=== PATIENT | female | born 1980 | race Caucasian/White ===

== ENCOUNTER 2016-10-22 18:38 | Emergency (ER) | payer OTHER ==
[~2016-10-22] VITALS: Ht 157.5 cm; Wt 104.3 kg
[~2016-10-22 18:38] MED LIST: ALBU2.5V5 NEB; AMOX500C PO; BENZ200C39 PO; CYCL10TA2 PO; HYDR-971 PO; IBUP-1060 PO; NAPR250T2 PO; ONDA4TAB10 SL; PRED20TA PO; PRED50TA PO
--- NOTE | 2016-10-22 19:03 | PHYS DOC ---
Past Medical History Past Medical History: Anxiety, Asthma, Diabetes-Type II, Other Additional Past Medical Histor: MITRAL VALVE PROLAPSE Past Surgical History: Cholecystectomy, Tubal ligation, Other Additional Past Surgical Histo: R.FOOT, MITRAL VALVE REPAIR Alcohol Use: Rarely Drug Use: None Adult General Chief Complaint Chief Complaint: ABDOMINAL PAIN HPI HPI Patient is a 36 year old female who presents with epigastric pain. Patient reports she has been having a stabbing epigastric pain since last week. This has gotten worse the past 2 days. Clear inciting or aggravating factors. She does report after she eats it feels a little bit better for a few minutes, and then the pain comes back. She reports that this afternoon she had one episode of coffee-ground emesis. She is also been having diarrhea. Patient has been taking pantoprazole (only since 10/18/16) as well as tramadol with insufficient relief. She does not take any anticoagulants. She denies taking NSAIDs. No other acute complaints. Review of Systems Review of Systems Constitutional: Denies fever or chills Eyes: Denies change in visual acuity or eye pain HENT: Denies nasal congestion or sore throat Respiratory: Denies cough or shortness of breath Cardiovascular: Denies chest pain GI: Epigastric pain, nausea, emesis x1, diarrhea. Denies bloody stools : Denies dysuria or hematuria Musculoskeletal: Denies back pain or joint pain Integument: Denies rash or skin lesions Neurologic: Denies headache, focal weakness or sensory changes Current Medications Current Medications Current Medications Medications (Trade) Dose Ordered Sig/Diana Start Time Stop Time Status Last Admin Dose Admin Morphine Sulfate 4 mg 1X ONCE 10/22/16 21:00 10/22/16 21:01 DC Multi-Ingredient Mouthwash/Gargle (Gi Cocktail Single Dose) 15 ml 1X ONCE 10/22/16 21:00 10/22/16 21:01 DC Ondansetron HCl 4 mg 4 mg 1X ONCE 10/22/16 19:15 10/22/16 19:16 DC 10/22/16 19:33 4 MG Pantoprazole Sodium 80 mg/ Sodium Chloride 100 ml @ 10 mls/hr 1X ONCE 10/22/16 19:30 10/23/16 05:29 10/22/16 19:34 10 MLS/HR Sodium Chloride (Iv Sodium Chloride 0.9% 1000ml Bag) 1,000 ml @ 1,000 mls/hr 1X ONCE 10/22/16 19:15 10/22/16 20:14 DC 10/22/16 19:34 1,000 MLS/HR Allergies Allergies Allergies Coded Allergies Type Severity Reaction Last Updated Verified vancomycin Allergy Mild Hives 07/29/16 Yes azithromycin Allergy Unknown 08/17/16 Yes codeine Allergy Unknown 08/17/16 Yes Physical Exam Physical Exam Constitutional: Well developed, well nourished, no acute distress, non-toxic appearance HENT: Normocephalic, atraumatic, bilateral external ears normal Eyes: EOMI, conjunctiva normal, no discharge Neck: Normal range of motion, no stridor Cardiovascular: Heart rate normal, regular rhythm, no murmur Lungs & Thorax: Bilateral breath sounds clear to auscultation Abdomen: Bowel sounds normal, soft, non-distended, epigastric TTP without guarding or rebound Skin: Warm, dry, no erythema, no rash Extremities: No obvious deformity, no edema Neurologic: Alert and oriented X 3, no gross deficits noted Current Patient Data Vital Signs Vital Signs Date Time Temp Pulse Resp B/P Pulse Ox O2 Delivery O2 Flow Rate FiO2 10/22/16 18:42 97.6 87 20 122/68 97 Room Air 97.6 Lab Values Laboratory Tests Test 10/22/16 18:45 10/22/16 19:20 10/22/16 20:20 Urine Collection Type Unknown Urine Color Yellow Urine Clarity Clear Urine pH 6.0 Urine Specific [place] 1.025 Urine Protein Negativemg/dL (NEG-TRACE) Urine Glucose (UA) Negativemg/dL (NEG) Urine Ketones (Stick) Negativemg/dL (NEG) Urine Blood Large (NEG) Urine Nitrite Negative (NEG) Urine Bilirubin Negative (NEG) Urine Urobilinogen Dipstick 0.2mg/dL (0.2 mg/dL) Urine Leukocyte Esterase Trace (NEG) Urine RBC 0/HPF (0-2) Urine WBC 5-10/HPF (0-4) Urine Squamous Epithelial Cells Mod/LPF Urine Bacteria Moderate/HPF (0-FEW) Urine Mucus Mod/LPF Urine Test Negative (NEG) White Blood Count 6.9x10^3/uL (4.0-11.0) Red Blood Count 5.17x10^6/uL (3.50-5.40) Hemoglobin 13.7g/dL (12.0-15.5) Hematocrit 42.4% (36.0-47.0) Mean Corpuscular Volume 82fL (79-100) Mean Corpuscular Hemoglobin 27pg (25-35) Mean Corpuscular Hemoglobin Concent 32g/dL (31-37) Red Cell Distribution Width 14.3% (11.5-14.5) Platelet Count 234x10^3/uL (140-400) Neutrophils (%) (Auto) 60% (31-73) Lymphocytes (%) (Auto) 30% (24-48) Monocytes (%) (Auto) 6% (0-9) Eosinophils (%) (Auto) 3% (0-3) Basophils (%) (Auto) 0% (0-3) Neutrophils # (Auto) 4.2x10^3uL (1.8-7.7) Lymphocytes # (Auto) 2.1x10^3/uL (1.0-4.8) Monocytes # (Auto) 0.4x10^3/uL (0.0-1.1) Eosinophils # (Auto) 0.2x10^3/uL (0.0-0.7) Basophils # (Auto) 0.0x10^3/uL (0.0-0.2) Sodium Level 140mmol/L (136-145) Potassium Level 3.9mmol/L (3.5-5.1) Chloride Level 105mmol/L (98-107) Carbon Dioxide Level 28mmol/L (21-32) Anion Gap 7 (6-14) Blood Urea Nitrogen 13mg/dL (7-20) Creatinine 1.0mg/dL (0.6-1.0) Estimated GFR (Cockcroft-Gault) 62.1 BUN/Creatinine Ratio 13 (6-20) Glucose Level 100mg/dL (70-99) H Calcium Level 8.8mg/dL (8.5-10.1) Total Bilirubin 0.5mg/dL (0.2-1.0) Aspartate Amino Transferase (AST) 20U/L (15-37) Alanine Aminotransferase (ALT) 58U/L (14-59) Alkaline Phosphatase 78U/L (46-116) Total Protein 7.2g/dL (6.4-8.2) Albumin 3.2g/dL (3.4-5.0) L Albumin/Globulin Ratio 0.8 (1.0-1.7) L Lipase 84U/L (73-393) Prothrombin Time 13.4SEC (11.7-14.0) Prothrombin Time INR 1.1 (0.8-1.1) PTT 31SEC (24-38) Laboratory Tests 10/22/16 19:20 Laboratory Tests 10/22/16 19:20 EKG EKG [] Radiology/Procedures Radiology/Procedures CXR (my read): No acute abnormality Course & Med Decision Making Course & Med Decision Making Pertinent Labs and Imaging studies reviewed. (See chart for details) Patient is 36-year-old female who presents with epigastric pain and reported coffee-ground emesis. Likely PUD. Will check labs, chest x-ray to assess for free air under diaphragm. IV fluids, pain meds, nausea meds, pantoprazole drip ordered. Labs unremarkable; hemoglobin 13.7. Chest x-ray okay per my read. Patient's vitals remained stable, with no tachycardia or hypotension. No further vomiting within the emergency department. Discussed results with patient. As labs and vital signs remained completely and concerning, we will plan discharge home with instructions for close follow-up with gastroenterology and strict return precautions. Discharged with prescription for more frequently dosed PPI, Pepcid, pain meds. Dragon Disclaimer Dragon Disclaimer This electronic medical record was generated, in whole or in part, using a voice recognition dictation system. Departure Departure Impression: Primary Impression: Epigastric abdominal pain Additional Impression: Hematemesis Disposition: HOME, SELF-CARE Condition: STABLE Referrals: NO PCP (PCP) ELIZABETH ESCAMILLA MD Patient Instructions: Peptic Ulcer Disease Additional Instructions: Thank you for allowing us to provide care today in the Emergency Department. Take the provided medication as directed. Use caution when taking the pain medication as it can make you drowsy. Schedule a follow up appointment with a store clerk cashier using the provided contact information. Return promptly to the Emergency Department if you develop any new or concerning symptoms. Scripts Hydrocodone/Apap 5-325 (Charmco 5-325 Tablet)1 Each Tablet1 Tab PO PRN Q6HRS PRN PAIN #15 TAB Ref 0 Prov:ANNE MORIN MD 10/22/16 Famotidine 20 Mg Ipevjz12 Mg PO BID #30 TAB Prov:ANNE MORIN MD 10/22/16 Pantoprazole Sodium 40 Mg Tablet.dr40 Mg PO BID #30 TAB Prov:ANNE MORIN MD 10/22/16 Problem Qualifiers ANNE MORIN MD Oct 22, 2016 19:03
[2016-10-22] MEDS ORDERED: ONDANSETRON PF 4 MG/2 ML VIAL. IV ONE (19:15)
[2016-10-22] MEDS ORDERED: MORPHINE SULFATE 4 MG/ML DISP.SYRIN. IV ONE ×2 (19:15→21:00)
[2016-10-22] MEDS ORDERED: IV NORMAL SALINE 1000ML BAG 1,000 ML IV ONE (19:15)
[2016-10-22] MEDS ORDERED: PANTOPRAZOLE SODIUM IV 80 MG in IV NORMAL SALINE 100ML 100 ML IV ONE (19:30)
[2016-10-22 19:38] LABS: BASO % 0 % (0-3); EOS % 3 % (0-3); HEMATOCRIT 42.4 % (36.0-47.0); HEMOGLOBIN 13.7 g/dL (12.0-15.5); LYMPH # 2.1 x10^3/uL (1.0-4.8); LYMPH % 30 % (24-48); MEAN CORPUSCULAR HEMOGLOBIN 27 pg (25-35); MEAN CORPUSCULAR HGB CONC 32 g/dL (31-37); MEAN CORPUSCULAR VOLUME 82 fL (79-100); MONO % 6 % (0-9); NEUT % 60 % (31-73); PLATELET COUNT 234 x10^3/uL (140-400); RED BLOOD COUNT 5.17 x10^6/uL (3.50-5.40); RED CELL DISTRIBUTION WIDTH 14.3 % (11.5-14.5); WHITE BLOOD COUNT 6.9 x10^3/uL (4.0-11.0)
[2016-10-22 19:47] LABS: CALCIUM 8.8 mg/dL (8.5-10.1); GFR 62.1; POTASSIUM 3.9 mmol/L (3.5-5.1)
[2016-10-22 19:53] LABS: ALBUMIN 3.2 g/dL (3.4-5.0); ALBUMIN/GLOBULIN RATIO 0.8 (1.0-1.7); TOTAL BILIRUBIN 0.5 mg/dL (0.2-1.0); TOTAL PROTEIN 7.2 g/dL (6.4-8.2)
[2016-10-22 20:26] LABS: BILIRUBIN,URINE NEGATIVE (NEG); GLUCOSE,URINE NEGATIVE (NEG); NITRITE,URINE NEGATIVE (NEG); PROTEIN,URINE NEGATIVE (NEG-TRACE); UROBILINOGEN,URINE 0.2 mg/dL (0.2 mg/dL)
[2016-10-22 20:28] LABS: INR 1.1 (0.8-1.1); PROTHROMBIN TIME PATIENT 13.4 SEC (11.7-14.0)
[2016-10-22 20:37] LABS: BACTERIA,URINE MODERATE /HPF (0-FEW); RBC,URINE 0 /HPF (0-2); SQUAMOUS EPITHELIAL CELL,UR MOD /LPF
[2016-10-22 20:49] LABS: NEG OBC UR NEG; POS OBC UR POS
[2016-10-22] MEDS ORDERED: LIDO:MAALOX:DONNATAL 1:1:1 15 ML SINGLE DOSE SWSW ONE (21:00)
[2016-10-22] MEDS ORDERED: FAMO20TA5 PO (21:01)
[2016-10-22] MEDS ORDERED: PANT40TA5 PO (21:01)
[2016-10-22] MEDS ORDERED: HYDR-971 PO (21:01)
[2016-10-22 21:18] VITALS: BP 110/51
--- NOTE | 2016-10-23 08:37 | RAD ---
Exam: AP portable chest. History: Epigastric pain today, evaluate for free air. Comparison: 09/15/2016. Findings: The heart and mediastinal structures are within normal limits for size. Lungs are without infiltrate. No pneumothorax or pleural effusion is appreciated. Impression: 1. No acute cardiopulmonary process.
[2016-10-26] MEDS ORDERED: PROM25TA10 PO (14:26)
== END 2016-10-22 21:30 | disposition home or self-care (01) ==
LOC: ER 18:38
DX: R10.13 Epigastric pain (principal); K92.0 Hematemesis; R19.7 Diarrhea, unspecified; J45.909 Unspecified asthma, uncomplicated; E11.9 Type 2 diabetes mellitus without complications; I34.1 Nonrheumatic mitral (valve) prolapse; F41.9 Anxiety disorder, unspecified; Z90.49 Acquired absence of other specified parts of digestive tract; Z98.51 Tubal ligation status; Z88.1 Allergy status to other antibiotic agents; Z88.5 Allergy status to narcotic agent
CPT/HCPCS: 36415; 71010; 80053; 81001; 81025; 83690; 85027; 85610; 85730; 86850; 86900; 86901; 87086; 96365; 96366; 96375; 96376; 99285; C9113; J2270; J2405; J7030

== ENCOUNTER 2016-11-03 09:46 | Emergency (ER) | payer OTHER ==
[~2016-11-03] VITALS: Ht 160 cm; Wt 108.9 kg
[~2016-11-03 09:46] MED LIST changes: +FAMO20TA5 PO; +HYDR-2678 PO; +METO10TA81 PO; +PANT40TA3 PO; +PANT40TA5 PO; +PROM25TA10 PO
[2016-11-03] MEDS ORDERED: IV NORMAL SALINE 1000ML BAG 1,000 ML IV SCH (10:06)
[2016-11-03] MEDS ORDERED: METOCLOPRAMIDE HCL 10 MG/2 ML VIAL. IV ONE (10:15)
[2016-11-03 10:26] LABS: BILIRUBIN,URINE NEGATIVE (NEG); GLUCOSE,URINE NEGATIVE (NEG); NITRITE,URINE NEGATIVE (NEG); PROTEIN,URINE NEGATIVE (NEG-TRACE)
[2016-11-03 10:41] LABS: BASO # 0.1 x10^3/uL (0.0-0.2); BASO % 1 % (0-3); CALCIUM 9.3 mg/dL (8.5-10.1); EOS % 5 % (0-3); GFR 62.1; HEMATOCRIT 44.3 % (36.0-47.0); HEMOGLOBIN 14.3 g/dL (12.0-15.5); LYMPH # 1.7 x10^3/uL (1.0-4.8); LYMPH % 18 % (24-48); MEAN CORPUSCULAR HEMOGLOBIN 27 pg (25-35); MEAN CORPUSCULAR HGB CONC 32 g/dL (31-37); MEAN CORPUSCULAR VOLUME 83 fL (79-100); MONO % 4 % (0-9); NEUT % 72 % (31-73); PLATELET COUNT 269 x10^3/uL (140-400); POTASSIUM 4.3 mmol/L (3.5-5.1); RED BLOOD COUNT 5.37 x10^6/uL (3.50-5.40); RED CELL DISTRIBUTION WIDTH 14.4 % (11.5-14.5); WHITE BLOOD COUNT 9.6 x10^3/uL (4.0-11.0)
[2016-11-03 10:42] LABS: RBC,URINE 0 /HPF (0-2); WBC,URINE 0 /HPF (0-4)
[2016-11-03 10:43] LABS: BACTERIA,URINE 0 /HPF (0-FEW); NEG OBC UR NEG; POS OBC UR POS; SQUAMOUS EPITHELIAL CELL,UR FEW /LPF
[2016-11-03 10:47] LABS: ALBUMIN 3.5 g/dL (3.4-5.0); DIRECT BILIRUBIN 0.2 mg/dL (0.0-0.2); TOTAL BILIRUBIN 0.9 mg/dL (0.2-1.0); TOTAL PROTEIN 7.7 g/dL (6.4-8.2)
[2016-11-03] MEDS ORDERED: DIPHENHYDRAMINE HCL 25 MG CAPSULE PO ONE (11:15)
[2016-11-03] MEDS ORDERED: PROM12.553 RC (11:19)
--- NOTE | 2016-11-03 11:19 | PHYS DOC ---
Past Medical History Past Medical History: Anxiety, Asthma, Diabetes-Type II, Other Additional Past Medical Histor: MITRAL VALVE PROLAPSE, gastroparesis Past Surgical History: Cholecystectomy, Tubal ligation, Other Additional Past Surgical Histo: R.FOOT, MITRAL VALVE REPAIR Alcohol Use: Rarely Drug Use: None Adult General Chief Complaint Chief Complaint: ABDOMINAL PAIN HPI HPI Patient is a 36 year old female who presents with n/v nbnb emesis and abdominal pain exactly like gastroparesis symptoms. She has been home 2 days and tried eating hot dogs that started her symptoms. She denies f/c, diarrhea, dysuria, hematuria. She is taking zofran odt and reglan at home as well as other prescribed meds. Review of Systems Review of Systems Constitutional: Denies fever or chills [] Eyes: Denies change in visual acuity, redness, or eye pain [] HENT: Denies nasal congestion or sore throat [] Respiratory: Denies cough or shortness of breath [] Cardiovascular: No additional information not addressed in HPI [] GI: Denies bloody stools or diarrhea [] : Denies dysuria or hematuria [] Musculoskeletal: Denies back pain or joint pain [] Integument: Denies rash or skin lesions [] Neurologic: Denies headache, focal weakness or sensory changes [] Endocrine: Denies polyuria or polydipsia [] Current Medications Current Medications Current Medications Medications (Trade) Dose Ordered Sig/Diana Start Time Stop Time Status Last Admin Dose Admin Diphenhydramine HCl (Benadryl) 25 mg 1X ONCE 11/03/16 11:15 11/03/16 11:17 DC 11/03/16 11:33 25 MG Metoclopramide HCl (Reglan) 10 mg 1X ONCE 11/03/16 10:15 11/03/16 10:17 DC 11/03/16 10:32 10 MG Sodium Chloride (Iv Sodium Chloride 0.9% 1000ml Bag) 1,000 ml @ 1,000 mls/hr Q1H 11/03/16 10:06 11/03/16 11:05 DC 11/03/16 10:32 1,000 MLS/HR Allergies Allergies Allergies Coded Allergies Type Severity Reaction Last Updated Verified azithromycin Allergy Intermediate Hive, makes heart race. 10/30/16 Yes codeine Allergy Intermediate 10/29/16 Yes vancomycin Allergy Intermediate Hives 10/29/16 Yes Physical Exam Physical Exam Constitutional: Well developed, well nourished, no acute distress, non-toxic appearance. [] HENT: Normocephalic, atraumatic, bilateral external ears normal, oropharynx moist, nose normal. [] Eyes: PERRLA, EOMI. [] Neck: Normal range of motion, supple. [] Cardiovascular:Heart rate regular rhythm [] Lungs & Thorax: Bilateral breath sounds clear to auscultation [] Abdomen: Bowel sounds normal, soft, mild epigastric tenderness, no guarding or rebound. [] Skin: Warm, dry, no erythema, no rash. [] Back: No tenderness, no CVA tenderness. [] Extremities: ROM intact, no edema. [] Neurologic: Alert and oriented X 3, normal motor function, normal sensory function, no focal deficits noted. [] Psychologic: Affect normal, judgement normal, mood normal. [] Current Patient Data Vital Signs Vital Signs Date Time Temp Pulse Resp B/P Pulse Ox O2 Delivery O2 Flow Rate FiO2 11/03/16 11:30 76 16 110/60 96 Room Air 11/03/16 10:00 98.0 98.0 Lab Values Laboratory Tests Test 11/03/16 09:56 11/03/16 10:24 Urine Collection Type Unknown Urine Color Yellow Urine Clarity Clear Urine pH 8.0 Urine Specific [place] 1.015 Urine Protein Negativemg/dL (NEG-TRACE) Urine Glucose (UA) Negativemg/dL (NEG) Urine Ketones (Stick) 15mg/dL (NEG) Urine Blood Negative (NEG) Urine Nitrite Negative (NEG) Urine Bilirubin Negative (NEG) Urine Urobilinogen Dipstick 1.0mg/dL (0.2 mg/dL) Urine Leukocyte Esterase Small (NEG) Urine RBC 0/HPF (0-2) Urine WBC 0/HPF (0-4) Urine Squamous Epithelial Cells Few/LPF Urine Bacteria 0/HPF (0-FEW) Urine Test Negative (NEG) White Blood Count 9.6x10^3/uL (4.0-11.0) Red Blood Count 5.37x10^6/uL (3.50-5.40) Hemoglobin 14.3g/dL (12.0-15.5) Hematocrit 44.3% (36.0-47.0) Mean Corpuscular Volume 83fL (79-100) Mean Corpuscular Hemoglobin 27pg (25-35) Mean Corpuscular Hemoglobin Concent 32g/dL (31-37) Red Cell Distribution Width 14.4% (11.5-14.5) Platelet Count 269x10^3/uL (140-400) Neutrophils (%) (Auto) 72% (31-73) Lymphocytes (%) (Auto) 18% (24-48) L Monocytes (%) (Auto) 4% (0-9) Eosinophils (%) (Auto) 5% (0-3) H Basophils (%) (Auto) 1% (0-3) Neutrophils # (Auto) 6.9x10^3uL (1.8-7.7) Lymphocytes # (Auto) 1.7x10^3/uL (1.0-4.8) Monocytes # (Auto) 0.4x10^3/uL (0.0-1.1) Eosinophils # (Auto) 0.5x10^3/uL (0.0-0.7) Basophils # (Auto) 0.1x10^3/uL (0.0-0.2) Sodium Level 140mmol/L (136-145) Potassium Level 4.3mmol/L (3.5-5.1) Chloride Level 100mmol/L (98-107) Carbon Dioxide Level 32mmol/L (21-32) Anion Gap 8 (6-14) Blood Urea Nitrogen 12mg/dL (7-20) Creatinine 1.0mg/dL (0.6-1.0) Estimated GFR (Cockcroft-Gault) 62.1 Glucose Level 100mg/dL (70-99) H Calcium Level 9.3mg/dL (8.5-10.1) Total Bilirubin 0.9mg/dL (0.2-1.0) Direct Bilirubin 0.2mg/dL (0.0-0.2) Aspartate Amino Transferase (AST) 99U/L (15-37) H Alanine Aminotransferase (ALT) 177U/L (14-59) H Alkaline Phosphatase 88U/L (46-116) Total Protein 7.7g/dL (6.4-8.2) Albumin 3.5g/dL (3.4-5.0) Lipase 66U/L (73-393) L Laboratory Tests 11/03/16 10:24 Laboratory Tests 11/03/16 10:24 Course & Med Decision Making Course & Med Decision Making Pertinent Labs and Imaging studies reviewed. (See chart for details) Labs are unremarkable. She is feeling better after medications, but feels anxious after reglan. She took benadryl po and would like to go home. Return precautions given. She understood and agrees with plan. Dragon Disclaimer Dragon Disclaimer This electronic medical record was generated, in whole or in part, using a voice recognition dictation system. Departure Departure Impression: Primary Impression: Nausea and vomiting Disposition: HOME, SELF-CARE Condition: STABLE Referrals: UNKNOWN PCP NAME (PCP) Patient Instructions: Gastroparesis Additional Instructions: Take Phenergan as needed for nausea. Follow-up with your primary care doctor and GI clinic. Return for any concerns. Scripts Promethazine HCl (Phenergan)12.5 Mg Supp.rect12.5 Mg RC PRN Q6-8HRS PRN NAUSEA # 10 SUPP.RECT Prov:Hayley FRY MD 11/03/16 Problem Qualifiers Primary Impression: Nausea and vomiting Vomiting type: unspecified Vomiting Intractability: non-intractable Qualified Code: R11.2 - Nausea with vomiting, unspecified Hayley FRY MD Nov 03, 2016 11:19
[2016-11-03 11:30] VITALS: BP 110/60
[2016-11-04] MEDS ORDERED: LORA0.5T96 PO (21:11)
== END 2016-11-03 11:42 | disposition home or self-care (01) ==
LOC: ER 09:46
DX: R11.2 Nausea with vomiting, unspecified (principal); E11.9 Type 2 diabetes mellitus without complications; J45.909 Unspecified asthma, uncomplicated; Z90.49 Acquired absence of other specified parts of digestive tract; Z98.51 Tubal ligation status; Z88.1 Allergy status to other antibiotic agents; Z88.5 Allergy status to narcotic agent
CPT/HCPCS: 36415; 80048; 80076; 81001; 81025; 83690; 85027; 87086; 96361; 96374; 99285; J2765; J7030; Q0163

== ENCOUNTER 2016-11-04 19:55 | Emergency (ER) | payer OTHER ==
[~2016-11-04] VITALS: Ht 157.5 cm; Wt 111.6 kg
[~2016-11-04 19:55] MED LIST changes: +PROM12.553 RC
[2016-11-04 20:16] VITALS: BP 134/84
[2016-11-04] MEDS ORDERED: LORAZEPAM 1 MG TABLET. PO ONE (20:45)
[2016-11-04] MEDS ORDERED: LORA0.5T96 PO (21:11)
--- NOTE | 2016-11-04 21:12 | PHYS DOC ---
Past Medical History Past Medical History: Anxiety, Diabetes-Type II Additional Past Medical Histor: gastroparesis, mvp Past Surgical History: Coronary Bypass Surgery Additional Past Surgical Histo: tubal Alcohol Use: None Drug Use: None Adult General Chief Complaint Chief Complaint: ANXIETY/PANIC ATTACK [facility] HPI Patient is a 36 year old female with history of anxiety and diabetes type 2 who presents today with anxiety. Patient states she has been restless standing on her feet for the last 2 days. Patient states she was seen by her own PCP 2 days ago for the same symptoms and was started on Paxil. Patient states she was told the Paxil will take a couple days before it kicks in. Patient states she has not slept for the last 2 days. She states she was also seen in the ED yesterday for gastroparesis. She states she was given Reglan IV and Phenergan. Patient states she takes Reglan and daily basis for the last 2 weeks for gastroparesis and has taken Phenergan before with no issues. Patient states she tried taking Benadryl yesterday as well as today with no relief to her restlessness and anxiety. Patient is standing up in the room pacing around. She states she has a lot of stress in her life. Patient denies any suicidal or homicidal ideation. Review of Systems Review of Systems Constitutional: Denies fever or chills [] Eyes: Denies change in visual acuity, redness, or eye pain [] HENT: Denies nasal congestion or sore throat [] Respiratory: Denies cough or shortness of breath [] Cardiovascular: No additional information not addressed in HPI [] GI: Denies abdominal pain, nausea, vomiting, bloody stools or diarrhea [] : Denies dysuria or hematuria [] Musculoskeletal: Denies back pain or joint pain [] Integument: Denies rash or skin lesions [] Neurologic: Denies headache, focal weakness or sensory changes [] Endocrine: Denies polyuria or polydipsia [] Psych:anxiety. Current Medications Current Medications Current Medications Medications (Trade) Dose Ordered Sig/Diana Start Time Stop Time Status Last Admin Dose Admin Lorazepam (Ativan) 1 mg 1X ONCE 11/04/16 20:45 11/04/16 20:46 DC 11/04/16 20:50 1 MG Allergies Allergies Allergies Coded Allergies Type Severity Reaction Last Updated Verified azithromycin Allergy Intermediate Hive, makes heart race. 10/30/16 Yes codeine Allergy Intermediate 10/29/16 Yes vancomycin Allergy Intermediate Hives 10/29/16 Yes Physical Exam Physical Exam Constitutional: Well developed, well nourished, no acute distress, non-toxic appearance. [] HENT: Normocephalic, atraumatic, bilateral external ears normal, oropharynx moist, no oral exudates, nose normal. [] Eyes: PERRLA, EOMI, conjunctiva normal, no discharge. [] Neck: Normal range of motion, no tenderness, supple, no stridor. [] Cardiovascular:Heart rate regular rhythm, no murmur [] Lungs & Thorax: Bilateral breath sounds clear to auscultation [] Abdomen: Bowel sounds normal, soft, no tenderness, no masses, no pulsatile masses. [] Skin: Warm, dry, no erythema, no rash. [] Back: No tenderness, no CVA tenderness. [] Extremities: No tenderness, no cyanosis, no clubbing, ROM intact, no edema. [] Neurologic: Alert and oriented X 3, normal motor function, normal sensory function, no focal deficits noted. [] Psychologic: Patient is very anxious, she is pacing around the room. Current Patient Data Vital Signs Vital Signs Date Time Temp Pulse Resp B/P Pulse Ox O2 Delivery O2 Flow Rate FiO2 11/04/16 20:16 98.3 110 20 100 Room Air 98.3 EKG EKG [] Radiology/Procedures Radiology/Procedures [] Course & Med Decision Making Course & Med Decision Making Pertinent Labs and Imaging studies reviewed. (See chart for details) Patient is in the ED complaining of anxiety and restlessness and not being able to sleep for the last 2 days. As stated previously she was seen by the PCP 2 days ago and was started on Paxil for the same symptoms. Patient was is in the ED yesterday for gastroparesis, she was given Reglan IV and Phenergan she has taken both of this before and states she takes reglan daily for the last two week. She mercedes taken Benadryl with no relief. She stated she has taken Ativan before with good relief of her anxiety. I did give her 1 mg of Ativan, she is currently sitting in the room in no distress. EKG interpreted by Dr. [place] sinus rate them, QRS interval 70, heart rate 88, normal axis, no STEMI. I discharged this patient with Xanax 0.5 mg 2 tablets. I recommended she tries to contact the PCP and see if they can put her on Xanax prn or scheduled for anxiety. I also recommended she follows up with a counselor for the stress in her life. She was provided return precautions and discharged in stable condition. Dragon Disclaimer Dragon Disclaimer This electronic medical record was generated, in whole or in part, using a voice recognition dictation system. Departure Departure Impression: Primary Impression: Anxiety Disposition: 01 HOME, SELF-CARE Condition: STABLE Referrals: UNKNOWN PCP NAME (PCP) Follow-up with your own doctor as soon as possible Patient Instructions: Anxiety and Panic Attacks, Basr-lq-Soil Additional Instructions: You were seen for an anxiety with restlessness. We put you on medications to help with the symptoms. Contact your doctor and follow-up as soon as possible. Come back to the emergency room if symptoms worsen. Scripts Lorazepam (Ativan)0.5 Mg Tablet0.5 Mg PO BID PRN ANXIETY #2 TAB Prov:SHERI MOE APRN 11/04/16 SHERI MOE APRN Nov 04, 2016 21:12
--- NOTE | 2016-11-05 06:15 | EKG ---
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
== END 2016-11-04 21:23 | disposition home or self-care (01) ==
LOC: ER 19:55
DX: F41.9 Anxiety disorder, unspecified (principal); Z88.5 Allergy status to narcotic agent; Z88.1 Allergy status to other antibiotic agents
CPT/HCPCS: 93005; 99283-25; 99284-25

== ENCOUNTER 2016-12-12 20:57 | Emergency (ER) | payer OTHER ==
[~2016-12-12] VITALS: Ht 160 cm; Wt 115.2 kg
[~2016-12-12 20:57] MED LIST changes: +LORA0.5T96 PO
[2016-12-12 21:09] VITALS: BP 150/91
--- NOTE | 2016-12-12 21:47 | PHYS DOC ---
Past Medical History Past Medical History: Anxiety, Asthma, Diabetes-Type II Additional Past Medical Histor: gastroparesis, mvp Past Surgical History: Coronary Bypass Surgery Additional Past Surgical Histo: tubal Alcohol Use: None Drug Use: None Adult General Chief Complaint Chief Complaint: ANKLE PROBLEM [facility] HPI Patient is a 36 year old female who presents emergency room with complaint of right ankle pain and swelling after slipping and fall at home. Patient reports this happened approximately 30 minutes prior to arrival. Patient does have a long-standing history of right ankle pain. She had an ankle fracture within the past 2 years of requiring an open reduction with internal fixation. She currently does have indwelling hardware. Patient denies striking her head today with loss of consciousness. She denies any additional injuries or concerns at this time. Review of Systems Review of Systems Constitutional: Denies fever or chills [] Eyes: Denies change in visual acuity, redness, or eye pain [] HENT: Denies nasal congestion or sore throat [] Respiratory: Denies cough or shortness of breath [] Cardiovascular: No additional information not addressed in HPI [] GI: Denies abdominal pain, nausea, vomiting, bloody stools or diarrhea [] : Denies dysuria or hematuria [] Musculoskeletal: Denies back pain or joint pain [] Integument: Denies rash or skin lesions [] Neurologic: Denies headache, focal weakness or sensory changes [] Endocrine: Denies polyuria or polydipsia [] Current Medications Current Medications Current Medications Medications (Trade) Dose Ordered Sig/Diana Start Time Stop Time Status Last Admin Dose Admin Acetaminophen/ Hydrocodone Bitart (Lortab 5/325) 2 tab 1X ONCE 12/12/16 22:00 12/12/16 22:01 12/12/16 21:35 2 TAB Allergies Allergies Allergies Coded Allergies Type Severity Reaction Last Updated Verified azithromycin Allergy Intermediate Hive, makes heart race. 10/30/16 Yes codeine Allergy Intermediate 10/29/16 Yes vancomycin Allergy Intermediate Hives 10/29/16 Yes Physical Exam Physical Exam Constitutional: Well developed, well nourished, mild distress, non-toxic appearance. HENT: Normocephalic, atraumatic, bilateral external ears normal, oropharynx moist, no oral exudates, nose normal. [] Eyes: PERRLA, EOMI, conjunctiva normal, no discharge. [] Neck: Normal range of motion, no tenderness, supple, no stridor. [] Cardiovascular:Heart rate regular rhythm, no murmur [] Lungs & Thorax: Bilateral breath sounds clear to auscultation [] Abdomen: Bowel sounds normal, soft, no tenderness, no masses, no pulsatile masses. [] Skin: Warm, dry, no erythema, no rash. [] Back: No tenderness, no CVA tenderness. [] Extremities: Right knee is normal in appearance and nontender to palpation. Right foot is normal in appearance and nontender palpation. Right ankle with mild swelling about the medial lateral malleolus with tenderness to palpation in both. There is no palpable defect, deformity, instability or crepitus. Talar tilt and drawer are stable. Right foot is neurovascularly intact with capillary refill less than 2 seconds in the toes. Neurologic: Alert and oriented X 3, normal motor function, normal sensory function, no focal deficits noted. [] Psychologic: Affect normal, judgement normal, mood normal. [] Current Patient Data Vital Signs Vital Signs Date Time Temp Pulse Resp B/P Pulse Ox O2 Delivery O2 Flow Rate FiO2 12/12/16 21:09 98.0 95 20 100 Room Air 98.0 EKG EKG [] Radiology/Procedures Radiology/Procedures 3 views of patient's right ankle were performed with adequate technique. There is no evidence of fracture dislocation. There are no lucencies to the screws that retained hardware. There are no abnormalities to the hardware. Course & Med Decision Making Course & Med Decision Making Patient's ankle is stable. Patient's ankle was wrapped with an [place] wrap. She was advised her x-ray findings and the need to follow-up with Dr Sheridan, orthopedic doctor. Magan Disclaimer Magan Disclaimer This electronic medical record was generated, in whole or in part, using a voice recognition dictation system. Departure Departure Impression: Primary Impression: Right ankle sprain Disposition: 01 HOME, SELF-CARE Condition: GOOD Referrals: SHAYY DURANT MD (PCP) Patient Instructions: Ankle Sprain, [id number] Additional Instructions: 1. The x-rays of your right ankle today show no bony abnormalities other than the indwelling hardware which appears normal to this point. 2. Take the medication as prescribed. Keep your foot elevated as much as possible. Apply ice every 2 hours for 20-30 minutes at a time. 3. Review the discharge instructions for reasons to return to the emergency department. 4. Call Dr Sheridan's office in the morning to schedule follow-up appointment. Scripts Hydrocodone/Apap 5-325 ([place] 5-325 Tablet)1 Each Tablet1 Tab PO PRN Q6HRS PRN PAIN #15 TAB Prov:DELLA MONACO 12/12/16 DELLA MONACO Dec 12, 2016 21:47
[2016-12-12] MEDS ORDERED: HYDR-971 PO (22:00)
[2016-12-12] MEDS ORDERED: HYDROCODONE/APAP 5/325MG TABLET. PO ONE (22:00)
--- NOTE | 2016-12-13 09:02 | RAD ---
EXAM: Right ankle 3 views. HISTORY: Right ankle pain after injury. COMPARISON: 10/08/2016 FINDINGS: Three views of the right ankle are obtained. A chronic healed distal fibular metadiaphyseal fracture is fixed by lateral plate and screws. A chronic healed medial malleolar fracture is fixed by 2 screws. A small ossicle at the tip of the medial malleolus is chronic and reflects an old ligamentous injury. No acute fractures are seen. Alignment is normal. Joint spaces are maintained. There is a small plantar calcaneal spur. IMPRESSION: 1. Internal fixation of chronic healed medial and lateral malleolar fractures. No acute fracture.
== END 2016-12-12 22:04 | disposition home or self-care (01) ==
LOC: ER 20:57
DX: S93.401A Sprain of unspecified ligament of right ankle, initial encounter (principal); E11.9 Type 2 diabetes mellitus without complications; K31.84 Gastroparesis; J45.909 Unspecified asthma, uncomplicated; F41.9 Anxiety disorder, unspecified; Z95.1 Presence of aortocoronary bypass graft; Z88.5 Allergy status to narcotic agent; Z88.1 Allergy status to other antibiotic agents; W01.0XXA Fall on same level from slipping, tripping and stumbling without subsequent striking against object, initial encounter; Y93.89 Activity, other specified; Y92.098 Other place in other non-institutional residence as the place of occurrence of the external cause; Y99.8 Other external cause status
CPT/HCPCS: 73610; 99284

== ENCOUNTER → 2016-12-30 | Outpatient (CLI) | payer OTHER ==
[2016-12-12 21:09] VITALS: BP 150/91
--- NOTE | 2016-12-30 13:31 | RAD ---
CT of the ankles without contrast, 12/30/2016: History: Pain, previous injury Multidetector scans were obtained without contrast. Multiplanar reconstructions were produced. There is a surgical plate with screws transfixing a healed, nondisplaced distal fibular fracture on the right. There are 2 surgical screws transfixing a healed nondisplaced medial malleolar fracture. There are streak artifacts arising from these fixation devices. No acute ankle fracture or dislocation is identified. There is mild spurring at the right ankle joint. No joint effusion is seen. There is subcutaneous edema in the heel regions bilaterally. No abnormal focal fluid collection or mass is evident in the soft tissues. IMPRESSION: 1. Old, healed, internally fixed fractures of the right distal fibula and medial malleolus. 2. Mild degenerative change at the right ankle joint. 3. No acute bony abnormality is detected. PQRS Compliance Statement: One or more of the following individualized dose reduction techniques were utilized for this examination: 1. Automated exposure control 2. Adjustment of the mA and/or kV according to patient size 3. Use of iterative reconstruction technique
== END | disposition home or self-care (01) ==
LOC: CT 10:33
PROVIDERS: ATTEND Orthopaedic Surgery Sports Medicine
DX: S82.891A Other fracture of right lower leg, initial encounter for closed fracture (principal)
CPT/HCPCS: 73700

== ENCOUNTER 2017-01-05 10:40 | Day surgery (SDC) | payer OTHER ==
[~2017-01-05] VITALS: Ht 160 cm; Wt 115.2 kg
[~2017-01-05 10:40] MED LIST changes: +BUPIVACAINE MPF 0.5% 30 ML VIAL. ONE; +FENTANYL PF 100 MCG/2 ML VIAL. IV PRN; +IV RINGERS,LACTATED 1000ML 1,000 ML IV SCH; +LIDOCAINE 1% 1 ML SYRINGE. ID PRN; +LIDOCAINE 1% PF 30 ML VIAL. ONE; +LIDOCAINE 2% 100 MG/5 ML DISP.SYRIN. ONE; +ONDANSETRON PF 4 MG/2 ML VIAL. IV PRN; +ONDANSETRON PF 4 MG/2 ML VIAL. ONE; +PROPOFOL 0 ML IV ONE
[2017-01-05] MEDS ORDERED: GABA-586 PO (11:42)
[2017-01-05] MEDS ORDERED: FENTANYL PF 100 MCG/2 ML VIAL. ONE (11:42)
[2017-01-05 11:54] LABS: NEG OBC UR NEG; POS OBC UR POS
[2017-01-05] MEDS ORDERED: MIDAZOLAM HCL 2 MG/2 ML VIAL. ONE ×2 (12:15)
--- NOTE | 2017-01-05 12:15 | DISCH ---
DISCHARGE INSTRUCTIONS Condition on Discharge Condition on Discharge: Stable Activity After Discharge Activity Instructions for Disc: Activity as tolerated Other activity instructions: wear CAM boot when up and walking Bathing Instructions: Shower-keep dressing dry Weight Bearing Status after Di: As tolerated Diet after Discharge Diet after Discharge: Regular Wound Incision Care Wound/Incision Care: Ice to area for comfort, Keep wound/cast CDI, Keep wound elevated, Change dressing Other wound/incision instructi: change dressing as needed Contacting the DR. after DC Call your doctor for: Concerns you may have Follow-Up Follow up with: Arvin in 2wks SHANDA BARBER II, MD Jan 05, 2017 12:15
[2017-01-05] MEDS ORDERED: KETAMINE HCL 500 MG/10 ML VIAL. ONE (12:16)
--- NOTE | 2017-01-05 12:16 | PDOC ---
BRIEF OPERATIVE NOTE Date: Jan 05, 2017 Pre-Op Diagnosis Painful hardware, Right ankle Post-Op Diagnosis same Procedure Performed R ankle [facility] Surgeon Arvin Anesthesiologist Christi Anesthesia Type: General, MAC, Local Blood Loss 25mL Complications none SHANDA BARBER II, MD Jan 05, 2017 12:16
[2017-01-05] MEDS ORDERED: PROPOFOL 0 ML IV ONE (12:33)
[2017-01-05] MEDS ORDERED: PROPOFOL 20 ML IV ONE ×6 (13:01→13:47)
[2017-01-05] MEDS ORDERED: PROPOFOL 50 ML IV ONE ×2 (13:01→13:20)
[2017-01-05] MEDS: FENTANYL PF 100 MCG/2 ML VIAL. IV PRN ×4 (14:15→15:01)
[2017-01-05] MEDS ORDERED: PROCHLORPERAZINE 10 MG/2 ML VIAL. ONE (14:18)
[2017-01-05] MEDS ORDERED: OXYC-323 PO (15:02)
[2017-01-05] MEDS ORDERED: DOCU-27 PO (15:02)
[2017-01-05] MEDS ORDERED: PROCHLORPERAZINE 10 MG/2 ML VIAL. IV PRN (15:15)
[2017-01-05] MEDS ORDERED: MORPHINE SULFATE 2 MG/ML DISP.SYRIN. ONE (15:15)
[2017-01-05] MEDS ORDERED: MORPHINE SULFATE 2 MG/ML DISP.SYRIN. IV PRN (15:30)
[2017-01-05 15:49] VITALS: BP 136/64
--- NOTE | 2017-01-06 01:42 | OP ---
DATE OF SURGERY: 01/05/2017 SURGEON: Riaz Barber M.D. PUBLICATION SPECIALIST: None. ANESTHESIA: Conscious sedation with local. PREOPERATIVE DIAGNOSIS: Painful hardware after open reduction and internal fixation, bimalleolar ankle fracture. POSTOPERATIVE DIAGNOSIS: Painful hardware after open reduction and internal fixation, bimalleolar ankle fracture. PROCEDURE PERFORMED: Right ankle hardware removal. COMPLICATIONS: None. ESTIMATED BLOOD LOSS: 15 mL TOURNIQUET TIME: 58 minutes. REASON FOR PROCEDURE: The patient is a very pleasant 36-year-old female who I had seen and evaluated in the outpatient orthopedic surgery clinic for complaints of pain with pressure over her medial and lateral ankle. She underwent ORIF for an ankle fracture at an outside institution and presented to my clinic for a second opinion regarding her pain. I had a discussion of the risks, benefits, alternatives of the above surgery because she was tender over her hardware and I felt that her fracture had healed. I did get a CT scan to compare her bilateral ankles to make sure there was no syndesmotic malreduction. DESCRIPTION OF PROCEDURE: The patient was greeted in the preoperative area by myself. The correct extremity was marked and verified. She was taken to the operative suite and antibiotics were started en route. Once in the OR, she was transferred gently supine to the OR table and secured to the bed. After that, she had monitored anesthesia care with propofol drip. We then proceeded to place a nonsterile tourniquet and taped in place to her right thigh and then prepped and draped in the usual sterile fashion and then followed this with our standard preoperative timeout. I incised her lateral distal fibular region through her prior incision and dissected subcutaneous tissue with electrocautery and [place]. I incised her fascia in line with her skin incision and identified the peroneal muscle bellies and tendons and digitally dissected these off the plate. I then used a round periosteal elevator to remove the adherent fibrotic tissue and some small bony areas that had overgrown the plate until I exposed the plate in its entirety. I then removed the screws without complication and easily delivered the plate. I then curetted out the screw holes. I then directed my attention to the medial side and made approximately a 3 cm incision through her prior curvilinear incision, utilizing the distal extent, and dissected down to her medial malleolus. I palpated around with the [place] until I identified the screw heads and used fluoroscopy to assist as well. I then removed the adherent fibrotic tissue with a combination of [place] elevator and small rongeur and exposed the screw heads. After this, I was able to easily remove the posterior medial malleolar screw. The anterior one began to strip and therefore, I used a vise auto specialty services manager and pliers to deliver it fully. I then took a fluoroscopic picture to confirm all hardware had been removed. Her ankle was stable on external rotation stress test. The wounds were irrigated out and I closed her medial side first and then I used inverted interrupted 2-0 for the subcutaneous tissue and a 3-0 nylon in a mattress fashion for skin. I then closed her fascia with simple interrupted #1 Vicryl at her lateral incision followed by inverted interrupted 2-0 for subcutaneous tissue and 2-0 nylon in a mattress fashion for skin. I then injected approximately 17 mL of local anesthetic mixture into the katlyn-incisional areas. She tolerated the surgery well. No complications. At the conclusion of the surgery, she was awakened from her sedation and transferred gently supine to the recovery room cart and taken to PACU in a stable and extubated condition. Postop plan is to discharge her home. She will follow up with me in 2 weeks, sooner should problems arise. She was given wound care instructions. She can weightbear as tolerated in the Cam boot, but will refrain from any athletics. RIAZ BARBER MD DR: ALISE/catrina JOB#: [id number] / [id number] IE
== END 2017-01-05 16:12 | disposition home or self-care (01) ==
LOC: SURG 10:40
PROVIDERS: ATTEND Orthopaedic Surgery Sports Medicine
DX: T84.84XA Pain due to internal orthopedic prosthetic devices, implants and grafts, initial encounter (principal); G89.18 Other acute postprocedural pain; Y83.1 Surgical operation with implant of artificial internal device as the cause of abnormal reaction of the patient, or of later complication, without mention of misadventure at the time of the procedure; J45.909 Unspecified asthma, uncomplicated; E66.9 Obesity, unspecified; K21.9 Gastro-esophageal reflux disease without esophagitis; F41.9 Anxiety disorder, unspecified; Z90.49 Acquired absence of other specified parts of digestive tract; Z47.2 Encounter for removal of internal fixation device; Z98.51 Tubal ligation status
CPT/HCPCS: 20680; 76000; 81025; 82947; A4215; J0780; J1956; J2250; J2270; J2405; J2704; J3010; J3490

== ENCOUNTER 2017-01-11 14:19 | Emergency (ER) | payer OTHER ==
[~2017-01-11] VITALS: Ht 157.5 cm; Wt 115.2 kg
[~2017-01-11 14:19] MED LIST changes: -BUPIVACAINE MPF 0.5% 30 ML VIAL. ONE; +DOCU-27 PO; -FENTANYL PF 100 MCG/2 ML VIAL. IV PRN; +GABA-586 PO; -IV RINGERS,LACTATED 1000ML 1,000 ML IV SCH; -LIDOCAINE 1% 1 ML SYRINGE. ID PRN; -LIDOCAINE 1% PF 30 ML VIAL. ONE; -LIDOCAINE 2% 100 MG/5 ML DISP.SYRIN. ONE; -ONDANSETRON PF 4 MG/2 ML VIAL. IV PRN; -ONDANSETRON PF 4 MG/2 ML VIAL. ONE; +OXYC-323 PO; -PROPOFOL 0 ML IV ONE
[2017-01-11 14:29] VITALS: BP 124/84
--- NOTE | 2017-01-11 15:05 | PHYS DOC ---
Past Medical History Past Medical History: Anxiety, Asthma, Diabetes-Type II, Other Additional Past Medical Histor: gastroparesis, mvp Past Surgical History: Coronary Bypass Surgery, Tubal ligation, Other Additional Past Surgical Histo: R ANKLE ORIF Alcohol Use: None Drug Use: None Adult General Chief Complaint Chief Complaint: WOUND RECHECK/SUTURE REMOVAL [facility] HPI Patient is a 36 year old female presents to the emergency department with a history of right ankle surgery. Patient had surgery on by Dr Sheridan. Patient states she has burning and pain along the incision site. She states she has been taking Percocet for pain in which she does not like because it causes her to be foggy. She states she has been wearing the boot and it causes more pain. The incision appears with sutures intact, no redness, drainage or discoloration noted. Peripheral pulses 2+ cap refill brisk < 2 seconds. Review of Systems Review of Systems Constitutional: Denies fever or chills [] Eyes: Denies change in visual acuity, redness, or eye pain [] HENT: Denies nasal congestion or sore throat [] Respiratory: Denies cough or shortness of breath [] Cardiovascular: No additional information not addressed in HPI [] GI: Denies abdominal pain, nausea, vomiting, bloody stools or diarrhea [] : Denies dysuria or hematuria [] Musculoskeletal: Denies back pain. Right ankle pain Integument: Denies rash or skin lesions. Wound check right ankle Neurologic: Denies headache, focal weakness or sensory changes [] Allergies Allergies Allergies Coded Allergies Type Severity Reaction Last Updated Verified azithromycin Allergy Intermediate Hive, makes heart race. 01/05/17 Yes codeine Allergy Intermediate 01/05/17 Yes vancomycin Allergy Intermediate Hives 01/05/17 Yes Physical Exam Physical Exam Constitutional: Well developed, well nourished, no acute distress, non-toxic appearance. [] HENT: Normocephalic, atraumatic, bilateral external ears normal, oropharynx moist, no oral exudates, nose normal. [] Eyes: PERRLA, EOMI, conjunctiva normal, no discharge. [] Neck: Normal range of motion, no tenderness, supple, no stridor. [] Cardiovascular:Heart rate regular rhythm Lungs & Thorax: no respiratory distress Skin: Warm, dry, no erythema, no rash. Right ankle sutures intact without redness, drainage or discharge Back: No tenderness Extremities: No tenderness, no cyanosis, no clubbing, ROM intact, no edema. Peripheral pulse 2 + cap refill brisk < 2 seconds. Neurologic: Alert and oriented X 3, normal motor function, normal sensory function, no focal deficits noted. [] Psychologic: Affect normal, judgement normal, mood normal. [] Current Patient Data Vital Signs Vital Signs Date Time Temp Pulse Resp B/P Pulse Ox O2 Delivery O2 Flow Rate FiO2 01/11/17 14:29 98.8 91 16 124/84 98 Room Air 98.8 EKG EKG [] Radiology/Procedures Radiology/Procedures [] Course & Med Decision Making Course & Med Decision Making Pertinent Labs and Imaging studies reviewed. (See chart for details) Patient states she has Percocet at home which she's been taken for the pain and discomfort she states that she's been trying to keep the leg elevated with ice packs on it. She states the incision site stating some gibson. She also states that the bullet that she is wearing causes increased pain and discomfort and is requesting a shoe. Spoke with patient regards to contacting orthopedic doctor in regards to the boot versus the shoe. Patient will be discharged home in stable condition recommended continuing care as instructed upon discharge from surgery. [] Dragon Disclaimer Dragon Disclaimer This electronic medical record was generated, in whole or in part, using a voice recognition dictation system. Departure Departure Impression: Primary Impression: Ankle pain Disposition: HOME, SELF-CARE Condition: STABLE Referrals: SHAYY DURANT MD (PCP) Patient Instructions: Ankle Pain Additional Instructions: Serious tolerated. Continue to wear the boot as prescribed. Continue home medications as prescribed upon discharge. Follow-up with orthopedic in one week. Return back to emergency prior signs symptoms become worse. TRISTIAN KAUR CORN DETASSELER MACHINE OPERATOR Jan 11, 2017 15:05
== END 2017-01-11 15:07 | disposition home or self-care (01) ==
LOC: ER 14:19
DX: M25.571 Pain in right ankle and joints of right foot (principal); J45.909 Unspecified asthma, uncomplicated; E11.9 Type 2 diabetes mellitus without complications; Z95.1 Presence of aortocoronary bypass graft; Z98.890 Other specified postprocedural states; Z88.5 Allergy status to narcotic agent; Z88.1 Allergy status to other antibiotic agents
CPT/HCPCS: 99282

== ENCOUNTER 2017-01-13 08:55 | Emergency (ER) | payer OTHER ==
[~2017-01-13] VITALS: Ht 160 cm; Wt 115.2 kg
[2017-01-13] MEDS ORDERED: 0.9 % SODIUM CHLORIDE 10 ML DISP.SYRIN. IV PRN (09:15)
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
[2017-01-13] MEDS ORDERED: HALOPERIDOL LACTATE 5 MG/ML VIAL. IVP ONE (09:30)
[2017-01-13] MEDS ORDERED: METOCLOPRAMIDE HCL 10 MG/2 ML VIAL. IV ONE (09:30)
[2017-01-13] MEDS ORDERED: IV NORMAL SALINE 1000ML BAG 1,000 ML IV SCH (09:30)
[2017-01-13] MEDS ORDERED: DIPHENHYDRAMINE 50 MG/ML VIAL. IVP ONE (09:30)
[2017-01-13] MEDS ORDERED: PROCHLORPERAZINE 10 MG/2 ML VIAL. ONE (09:34)
[2017-01-13] MEDS ORDERED: PROCHLORPERAZINE 10 MG/2 ML VIAL. IV ONE (09:45)
[2017-01-13 10:09] LABS: BASO % 0 % (0-3); EOS % 4 % (0-3); HEMATOCRIT 43.4 % (36.0-47.0); HEMOGLOBIN 14.3 g/dL (12.0-15.5); LYMPH # 1.6 x10^3/uL (1.0-4.8); LYMPH % 19 % (24-48); MEAN CORPUSCULAR HEMOGLOBIN 27 pg (25-35); MEAN CORPUSCULAR HGB CONC 33 g/dL (31-37); MEAN CORPUSCULAR VOLUME 82 fL (79-100); MONO % 6 % (0-9); NEUT % 71 % (31-73); PLATELET COUNT 231 x10^3/uL (140-400); RED BLOOD COUNT 5.27 x10^6/uL (3.50-5.40); RED CELL DISTRIBUTION WIDTH 14.3 % (11.5-14.5); WHITE BLOOD COUNT 8.8 x10^3/uL (4.0-11.0)
[2017-01-13 10:12] LABS: CALCIUM 8.7 mg/dL (8.5-10.1); GFR 62.1; POTASSIUM 3.9 mmol/L (3.5-5.1)
[2017-01-13 10:21] LABS: ALBUMIN 3.3 g/dL (3.4-5.0); ALBUMIN/GLOBULIN RATIO 0.8 (1.0-1.7); TOTAL BILIRUBIN 0.9 mg/dL (0.2-1.0); TOTAL PROTEIN 7.7 g/dL (6.4-8.2)
[2017-01-13 10:28] LABS: BILIRUBIN,URINE NEGATIVE (NEG); GLUCOSE,URINE NEGATIVE (NEG); NITRITE,URINE NEGATIVE (NEG); PH,URINE 5.5; PROTEIN,URINE NEGATIVE (NEG-TRACE)
[2017-01-13 10:36] LABS: BARBITURATES NEG (NEG); BENZODIAZEPINES NEG (NEG); CANNABINOIDS NEG (NEG); COCAINE NEG (NEG); METHADONE NEG (NEG); OPIATES POS (NEG); PHENCYCLIDINE NEG (NEG)
[2017-01-13 10:44] LABS: BACTERIA,URINE FEW /HPF (0-FEW); ETHANOL, URINE NEG (NEG); RBC,URINE 0 /HPF (0-2); SQUAMOUS EPITHELIAL CELL,UR MANY /LPF
[2017-01-13] MEDS ORDERED: PROM25TA10 PO (12:08)
[2017-01-13] MEDS ORDERED: HYDR-971 PO (12:08)
[2017-01-13 12:11] VITALS: BP 149/83
== END 2017-01-13 12:16 | disposition home or self-care (01) ==
LOC: ER 08:55
DX: R10.13 Epigastric pain (principal); R11.2 Nausea with vomiting, unspecified; R19.7 Diarrhea, unspecified; E11.43 Type 2 diabetes mellitus with diabetic autonomic (poly)neuropathy; K31.84 Gastroparesis; F41.9 Anxiety disorder, unspecified; G89.4 Chronic pain syndrome; J45.909 Unspecified asthma, uncomplicated; I34.1 Nonrheumatic mitral (valve) prolapse; Z95.1 Presence of aortocoronary bypass graft; Z88.1 Allergy status to other antibiotic agents; Z88.8 Allergy status to other drugs, medicaments and biological substances; Z88.5 Allergy status to narcotic agent
CPT/HCPCS: 36415; 80053; 80305; 80320; 81001; 81025; 83690; 85027; 96361; 96374; 96375; 99285; J0780; J1200; J1630; J7030; G0481

== ENCOUNTER 2017-01-16 14:52 | Emergency (ER) | payer OTHER ==
[~2017-01-16] VITALS: Ht 157.5 cm; Wt 115.2 kg
[2017-01-16 14:56] VITALS: BP 121/62
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
[2017-01-16] MEDS ORDERED: ONDANSETRON ODT 4 MG TAB.RAPDIS. PO ONE (16:00)
--- NOTE | 2017-01-17 08:52 | RAD ---
Three-view right ankle radiographs 01/16/2017 Clinical history: The patient rolled her right ankle earlier today. AP, lateral and oblique digital radiographs of the right ankle were obtained. Comparison study is dated 12/12/2016. The sideplate and bone screws have been removed from the distal right fibula. The large bone screws have been removed from the medial malleolus. The right ankle mortise is intact. No acute fracture or dislocation of the right ankle is seen. A small bony density is seen inferior to the medial malleolus of the right ankle which likely represents an old avulsion fracture. Mild enthesophyte formation is seen involving the plantar aspect of the right calcaneus. Impression: No acute fracture or dislocation of the right ankle is seen.
--- NOTE | 2017-01-17 09:34 | RAD ---
Right tibia and fibula, 2 views, 01/16/2017: History: Injury, previous surgery There are lucencies in the distal fibula and distal tibia at the sites where surgical screws have been removed. There are old healed distal fibular and medial malleolar fractures. No acute fracture or dislocation is evident. There is mild degenerative change at the ankle joint. There is moderate subcutaneous edema about the lower leg. IMPRESSION: No acute bony abnormality is detected.
== END 2017-01-16 16:05 | disposition home or self-care (01) ==
LOC: ER 14:52
DX: S93.401A Sprain of unspecified ligament of right ankle, initial encounter (principal); F41.9 Anxiety disorder, unspecified; J45.909 Unspecified asthma, uncomplicated; E11.9 Type 2 diabetes mellitus without complications; Z95.1 Presence of aortocoronary bypass graft; Z98.51 Tubal ligation status; Z88.1 Allergy status to other antibiotic agents; Z88.5 Allergy status to narcotic agent; X58.XXXA Exposure to other specified factors, initial encounter; Y93.89 Activity, other specified; Y92.89 Other specified places as the place of occurrence of the external cause; Y99.8 Other external cause status
CPT/HCPCS: 29515; 73590; 73610; 99284-25

== ENCOUNTER 2017-01-19 22:47 | Emergency (ER) | payer OTHER ==
[~2017-01-19] VITALS: Ht 157.5 cm; Wt 114.3 kg
[2017-01-19 22:50] VITALS: BP 123/76
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
[2017-01-19 23:51] LABS: BILIRUBIN,URINE NEGATIVE (NEG); GLUCOSE,URINE NEGATIVE (NEG); NITRITE,URINE NEGATIVE (NEG); PROTEIN,URINE NEGATIVE (NEG-TRACE)
[2017-01-20 00:03] LABS: BACTERIA,URINE MANY /HPF (0-FEW); RBC,URINE 0 /HPF (0-2); SQUAMOUS EPITHELIAL CELL,UR MOD /LPF; WBC,URINE 20-40 /HPF (0-4)
[2017-01-20] MEDS ORDERED: SILV20CR4 TP (00:24)
[2017-01-20] MEDS ORDERED: PHEN-318 PO (00:24)
[2017-01-20] MEDS ORDERED: NITR100C PO (00:24)
[2017-01-20] MEDS ORDERED: PREDNISONE 20 MG TABLET PO ONE (00:30)
== END 2017-01-20 00:30 | disposition home or self-care (01) ==
LOC: ER 22:47
DX: T49.0X1A Poisoning by local antifungal, anti-infective and anti-inflammatory drugs, accidental (unintentional), initial encounter (principal); T28.8XXA Corrosion of internal genitourinary organs, initial encounter; N76.0 Acute vaginitis; G89.29 Other chronic pain; I34.1 Nonrheumatic mitral (valve) prolapse; E11.43 Type 2 diabetes mellitus with diabetic autonomic (poly)neuropathy; K31.84 Gastroparesis; F41.9 Anxiety disorder, unspecified; J45.909 Unspecified asthma, uncomplicated; Z95.1 Presence of aortocoronary bypass graft; Z98.51 Tubal ligation status; Z90.710 Acquired absence of both cervix and uterus; Z88.1 Allergy status to other antibiotic agents; Z88.5 Allergy status to narcotic agent; Z88.8 Allergy status to other drugs, medicaments and biological substances; Y93.89 Activity, other specified; Y92.89 Other specified places as the place of occurrence of the external cause; Y99.8 Other external cause status
CPT/HCPCS: 81001; 87086; 87491; 87591; 99284; J7512; Q0111

== ENCOUNTER 2017-02-27 09:58 | Emergency (ER) | payer OTHER ==
[~2017-02-27] VITALS: Ht 157.5 cm; Wt 115.2 kg
[~2017-02-27 09:58] MED LIST changes: +NITR100C PO; +PHEN-318 PO; +SILV20CR4 TP
[2017-02-27 10:15] VITALS: BP 129/78
--- NOTE | 2017-02-27 10:50 | RAD ---
Indication: Knee pain after a fall. Technique: Left knee series contains 5 images. No comparison is available. Findings: There is no fracture or dislocation. There is no joint effusion or soft tissue swelling. Impression: Negative for fracture.
--- NOTE | 2017-02-27 11:07 | PHYS DOC ---
Past Medical History Past Medical History: Anxiety, Asthma, Diabetes-Type II, Other Additional Past Medical Histor: gastroparesis, mvp Past Surgical History: Coronary Bypass Surgery, Tubal ligation, Other Additional Past Surgical Histo: R ANKLE ORIF Alcohol Use: None Drug Use: None Adult General Chief Complaint Chief Complaint: KNEE INJURY HPI HPI Patient is a 36 year old female presents emergency department stating that last night she was tried to make pancakes for her son when there was water on the tile floor and she slipped and fell. She states that she landed on her left knee. She does have some bruising and swelling noted around the knee As well as just slightly above the knee Itself. Patient states she has increased pain with trying to stand and ambulate. She denies any numbness or tingling in the lower extremity. She states she is taken 600 mg of ibuprofen. She states that she normally does not take a lot of ibuprofen as she has a history of gastroparesis. Review of Systems Review of Systems Constitutional: Denies fever or chills [] Eyes: Denies change in visual acuity, redness, or eye pain [] HENT: Denies nasal congestion or sore throat [] Respiratory: Denies cough or shortness of breath [] Cardiovascular: No additional information not addressed in HPI [] GI: Denies abdominal pain, nausea, vomiting, bloody stools or diarrhea [] : Denies dysuria or hematuria [] Musculoskeletal: Denies back pain. C/o left knee pain Integument: Denies rash or skin lesions [] Neurologic: Denies headache, focal weakness or sensory changes [] Endocrine: Denies polyuria or polydipsia [] Allergies Allergies Allergies Coded Allergies Type Severity Reaction Last Updated Verified azithromycin Allergy Intermediate Hive, makes heart race. 01/05/17 Yes codeine Allergy Intermediate 01/05/17 Yes vancomycin Allergy Intermediate Hives 01/05/17 Yes metoclopramide Allergy Mild "SEVERE ANXIETY" 01/13/17 Yes Physical Exam Physical Exam Constitutional: Well developed, well nourished, no acute distress, non-toxic appearance. [] HENT: Normocephalic, atraumatic, bilateral external ears normal, oropharynx moist, no oral exudates, nose normal. [] Eyes: PERRLA, EOMI, conjunctiva normal, no discharge. [] Neck: Normal range of motion, no tenderness, supple, no stridor. [] Cardiovascular:Heart rate regular rhythm, no murmur [] Lungs & Thorax: Bilateral breath sounds clear to auscultation [] Skin: Warm, dry, no erythema, no rash. [] Back: No tenderness Extremities: left knee tenderness, no cyanosis, no clubbing, ROM intact, no edema. Patient with decreased range of motion of the left knee. Patient has tenderness noted on the medial lateral and posterior side of the knee. She does have bruising and tenderness noted along the anterior part of the knee. Neurologic: Alert and oriented X 3, normal motor function, normal sensory function, no focal deficits noted. [] Psychologic: Affect normal, judgement normal, mood normal. [] Current Patient Data Vital Signs Vital Signs Date Time Temp Pulse Resp B/P (MAP) Pulse Ox O2 Delivery O2 Flow Rate FiO2 02/27/17 10:15 97.4 88 16 97 Room Air 97.4 EKG EKG [] Radiology/Procedures Radiology/Procedures [][facility] [address] [place] [address] IMAGING REPORT Signed PATIENT: OMER DELAROSA ACCOUNT: [id number] : 1980 LOCATION: ER AGE: 36 SEX: F EXAM STATUS: REG ER ORD. PHYSICIAN: TRISTIAN KAUR APRN REASON: PAIN S/P A FALL PROCEDURE: KNEE LEFT 4V Indication: Knee pain after a fall. Technique: Left knee series contains 5 images. No comparison is available. Findings: There is no fracture or dislocation. There is no joint effusion or soft tissue swelling. Impression: Negative for fracture. DICTATED and SIGNED BY: YOLANDA BOND MD DATE: 02/27/17 1046 CC: SHAYY DURANT MD; TRISTIAN KAUR APRN; NON,STAFF ~ Course & Med Decision Making Course & Med Decision Making Pertinent Labs and Imaging studies reviewed. (See chart for details) X-rays were negative for any bony abnormalities per radiology. Patient will be placed in a knee immobilizer and on crutches with recommendations to follow-up with Dr. Barber within the week. Recommended her to continue to take ibuprofen 600 mg every 8 hours for pain and discomfort. She'll be provided with Ultram for severe pain and discomfort. Patient was instructed this medication will cause drowsiness do not take any be alert and oriented. Patient was provided with signs and symptoms to return back to emergency department. Recommended ice packs on 20 minutes off 20 minutes several times a day and elevation as much as possible. Patient agrees with discharge instructions treatment regimens and follow-up recommendations. She'll states that she has driven herself here to the emergency department therefore cannot provide her any further medication for her pain and discomfort. Patient later called back stating that Ultram causes her to have seizures. Patient was then K tracs noted to have had Ultram filled in October. Patient is requesting something different for pain and discomfort. Further notation noted on K Tracs asked was patient had had hydrocodone filled on 02/25 with 20 tablets filled by provider from [facility]. Patient will be provided with a prescription for hydrocodone in which will have a notation that if she has had narcotics filled within the last 2 weeks to not fill his prescription. [] Dragon Disclaimer Dragon Disclaimer This electronic medical record was generated, in whole or in part, using a voice recognition dictation system. Departure Departure Impression: Primary Impression: Knee pain, acute Disposition: HOME, SELF-CARE Condition: STABLE Referrals: SHAYY DURANT MD (PCP) SHANDA BARBER II, MD Patient Instructions: Crutch Use, [id number], Knee Immobilizer, [id number] , Knee Pain, Xoxt-gr-Gify Additional Instructions: Activity as tolerated. Ibuprofen 600 mg every 8 hours. Ultram for severe pain and discomfort. This medication will cause drowsiness do not take any be alert and oriented. Ice packs on 20 minutes off 20 minutes several times a day. Wear the knee immobilizer or the Ambrose wrap for the next week until you follow-up with orthopedic. Use the crutches for ambulation until you follow-up with orthopedic. Elevation as much as possible. Follow-up with orthopedic within the next week. Return back to emergency prior signs symptoms of become worse. Scripts Hydrocodone/Apap 5-325 (NORCO 5-325 TABLET) 1 Each Tablet 1 TAB PO PRN Q6HRS Y for PAIN, #10 TAB 0 Refills Prov: TRISTIAN KAUR ASSURANCE OFFICER 02/27/17 TRISTIAN KAUR APRN February 27, 2017 11:07
[2017-02-27] MEDS ORDERED: TRAM-29 PO (11:08)
[2017-02-27] MEDS ORDERED: HYDR-971 PO (12:03)
== END 2017-02-27 11:15 | disposition home or self-care (01) ==
LOC: ER 10:32
DX: S80.02XA Contusion of left knee, initial encounter (principal); F41.9 Anxiety disorder, unspecified; E11.43 Type 2 diabetes mellitus with diabetic autonomic (poly)neuropathy; K31.84 Gastroparesis; I34.1 Nonrheumatic mitral (valve) prolapse; Z95.1 Presence of aortocoronary bypass graft; W01.0XXA Fall on same level from slipping, tripping and stumbling without subsequent striking against object, initial encounter; Y93.89 Activity, other specified; Y92.89 Other specified places as the place of occurrence of the external cause; Y99.8 Other external cause status
CPT/HCPCS: 29505; 73564; 99284-25

== ENCOUNTER → 2017-03-03 | Day surgery (SDC) | payer OTHER ==
[~2017-03-03] MED LIST changes: +IV RINGERS,LACTATED 1000ML 1,000 ML IV SCH; +LIDOCAINE 1% 1 ML SYRINGE. ID PRN; +ONDANSETRON PF 4 MG/2 ML VIAL. IV PRN; +PROCHLORPERAZINE 10 MG/2 ML VIAL. IV PRN; +PROPOFOL 20 ML IV ONE; +TRAM-29 PO; +fentaNYL PF VIAL 100 MCG/2 ML VIAL IV PRN
[2017-03-03 15:08] VITALS: BP 123/82
--- NOTE | 2017-03-09 11:05 | PATHOLOGY ---
PATHOLOGY REPORT * * * * * * * * FINAL DIAGNOSIS: Colonic mucosa, random colon biopsies: - No significant pathologic abnormalities. COMMENT: Sections of the random colon biopsy reveal multiple segments of colonic mucosa containing multiple, focally hyperplastic, mucosal-associated lymphoid aggregates. There is no evidence of a chronic destructive colitis, lymphocytic colitis, or collagenous colitis. (JPM:; d/t: 03/08/17) REPORT ELECTRONICALLY SIGNED BY: Kirk Madrigal M.D. DATE/TIME: 03/08/2017 13:27 * * * * * * * * GROSS PATHOLOGY: Received in formalin labeled "Jasmin Delarosa random colon biopsies," are multiple (more than 10) segments of mann soft tissue measuring 1.4 x 0.7 x 0.2 cm in aggregate dimensions and ranging from 0.2 to 0.6 cm in maximum dimension. The specimen is submitted entirely in cassette A1. (KAH; 03/04/2017) INITIAL CPT CODE(S): A; 43551 Professional services [place] [facility] [place] [address] Technical services performed by [facility] at [address] [place] [address] [address], [place] [address]. SPECIMEN(S) RECEIVED: A.Random colon biopsies CLINICAL HISTORY: Diarrhea PATIENT: JASMIN DELAROSA /AGE: 6 1980 (Age: 36) PATIENT #: [id number] ALT CASE #: SPECIMEN COLLECTION DATE: 03/03/2017 SPECIMEN RECEIVED DATE: 03/03/2017 [facility] - [address] [place] [address] - PHONE: [phone] * * * END OF REPORT * * *
== END | disposition home or self-care (01) ==
LOC: ENDOS 13:07
PROVIDERS: ATTEND Internal Medicine Gastroenterology
DX: K64.0 First degree hemorrhoids (principal); J45.909 Unspecified asthma, uncomplicated; F41.9 Anxiety disorder, unspecified; F32.9 Major depressive disorder, single episode, unspecified; E11.43 Type 2 diabetes mellitus with diabetic autonomic (poly)neuropathy; K31.84 Gastroparesis; Z80.3 Family history of malignant neoplasm of breast; Z83.3 Family history of diabetes mellitus; Z82.49 Family history of ischemic heart disease and other diseases of the circulatory system; Z72.89 Other problems related to lifestyle; F17.210 Nicotine dependence, cigarettes, uncomplicated; Z90.49 Acquired absence of other specified parts of digestive tract; Z98.51 Tubal ligation status; Z88.6 Allergy status to analgesic agent; Z88.3 Allergy status to other anti-infective agents; Z88.8 Allergy status to other drugs, medicaments and biological substances
CPT/HCPCS: 45380; J2704; 88305

== ENCOUNTER 2017-03-06 15:35 | Emergency (ER) | payer OTHER ==
[~2017-03-06] VITALS: Ht 157.5 cm; Wt 111.6 kg
[~2017-03-06 15:35] MED LIST changes: -IV RINGERS,LACTATED 1000ML 1,000 ML IV SCH; -LIDOCAINE 1% 1 ML SYRINGE. ID PRN; -ONDANSETRON PF 4 MG/2 ML VIAL. IV PRN; -PROCHLORPERAZINE 10 MG/2 ML VIAL. IV PRN; -PROPOFOL 20 ML IV ONE; -fentaNYL PF VIAL 100 MCG/2 ML VIAL IV PRN
[2017-03-06 16:30] VITALS: BP 123/82
[2017-03-06] MEDS ORDERED: MORPHINE SULFATE 4 MG/ML DISP.SYRIN. IM ONE (17:00)
--- NOTE | 2017-03-06 17:05 | PHYS DOC ---
Past Medical History Past Medical History: Anxiety, Asthma, Diabetes-Type II, Other Additional Past Medical Histor: gastroparesis, mvp Past Surgical History: Coronary Bypass Surgery, Tubal ligation, Other Additional Past Surgical Histo: R ANKLE ORIF Alcohol Use: None Drug Use: None Adult General Chief Complaint Chief Complaint: MECHANICAL FALL HPI HPI Patient is a 36 year old female presents to the emergency department with right upper chest pain and shoulder pain. She states she was walking out of the bathroom last night when she fell and the right arm shoulder hit the door jam. She states she is unable to move the shoulder without having increase pain and discomfort that radiates into the elbow. Patient states she took ibuprofen at home and developed an upset stomach. She states she took tylenol as well with no relief. Patient is right hand dominant. Review of Systems Review of Systems Constitutional: Denies fever or chills [] Eyes: Denies change in visual acuity, redness, or eye pain [] HENT: Denies nasal congestion or sore throat [] Respiratory: Denies cough or shortness of breath [] Cardiovascular: No additional information not addressed in HPI [] GI: Denies abdominal pain, nausea, vomiting, bloody stools or diarrhea [] : Denies dysuria or hematuria [] Musculoskeletal: Denies back pain. Right shoulder and right arm pain Integument: Denies rash or skin lesions [] Neurologic: Denies headache, focal weakness or sensory changes [] Endocrine: Denies polyuria or polydipsia [] Current Medications Current Medications Current Medications Medications (Trade) Dose Ordered Sig/Diana Start Time Stop Time Status Last Admin Dose Admin Morphine Sulfate 4 mg 1X ONCE 03/06/17 17:00 03/06/17 17:01 DC 03/06/17 17:13 4 MG Allergies Allergies Allergies Coded Allergies Type Severity Reaction Last Updated Verified azithromycin Allergy Intermediate Hive, makes heart race. 03/03/17 Yes codeine Allergy Intermediate 03/03/17 Yes vancomycin Allergy Intermediate Hives 03/03/17 Yes metoclopramide Allergy Mild "SEVERE ANXIETY" 03/03/17 Yes Physical Exam Physical Exam Constitutional: Well developed, well nourished, no acute distress, non-toxic appearance. [] HENT: Normocephalic, atraumatic, bilateral external ears normal, oropharynx moist, no oral exudates, nose normal. [] Eyes: PERRLA, EOMI, conjunctiva normal, no discharge. [] Neck: Normal range of motion, no tenderness, supple, no stridor. [] Cardiovascular:Heart rate regular rhythm, no murmur [] Lungs & Thorax: Bilateral breath sounds clear to auscultation [] Skin: Warm, dry, no erythema, no rash. [] Back: No tenderness Extremities: Right shoulder tenderness, no upper arm pain and discomfort. no cyanosis, no clubbing, ROM intact, no edema. Peripheral pulses 2+ cap refill brisk < 2 seconds. Neurologic: Alert and oriented X 3, normal motor function, normal sensory function, no focal deficits noted. [] Psychologic: Affect normal, judgement normal, mood normal. [] Current Patient Data Vital Signs Vital Signs Date Time Temp Pulse Resp B/P (MAP) Pulse Ox O2 Delivery O2 Flow Rate FiO2 03/06/17 17:13 18 99 Room Air 03/06/17 16:30 98.0 98 123/82 (96) 98.0 EKG EKG EKG completed at 17 oh to heart rate of 81 sinus rhythm noted no ectopy no STEMI per Dr. Jade[] Radiology/Procedures Radiology/Procedures [] Course & Med Decision Making Course & Med Decision Making Pertinent Labs and Imaging studies reviewed. (See chart for details) X-rays negative for any abnormalities per Dr Jade EKG was normal. Patient was provided with morphine here in the emergency department. Patient states that she is unable to take Tylenol as she has had gastroparesis and is unable to take ibuprofen. Spoke with patient in length as that limits the type of pain medications that we can provided because hydrocodone has Tylenol in it or can be provided with ibuprofen, Percocet has Tylenol in it as well. Visit her with patient requested morphine for her to go home with. Explained to visit sure that patient does not have anything broken that that is too strong of the medication that she needs to go home with. Recommended ice packs on 20 minutes off 20 minutes several times a day. Patient will be placed in a sling. She can call Dr. Sheridan on Tuesday for further evaluation and for pain management. Signs and symptoms to return back to emergency department as been provided. [] Dragon Disclaimer Dragon Disclaimer This electronic medical record was generated, in whole or in part, using a voice recognition dictation system. Departure Departure Impression: Primary Impression: Strain of right shoulder Disposition: HOME, SELF-CARE Condition: STABLE Referrals: SHAYY DURANT MD (PCP) Patient Instructions: Arm Sling Use-Brief, Shoulder Pain Additional Instructions: X-rays were negative for any bony abnormalities. You have stated that you are unable to take ibuprofen or Tylenol for pain and discomfort. Many medications to take care of pain has Tylenol and ibuprofen in them. This is limited the ability to prevent will be provided pain medication. Ice packs on 20 minutes off 20 minutes several times a day. Take your arm out of the sling 3-4 times a day and do active range of motion with the arm and to prevent the shoulder from walking up. Follow-up with Dr. Sheridan on Tuesday. Return to the emergency department for signs and symptoms of become worse. TRISTIAN KAUR APRN March 06, 2017 17:05
--- NOTE | 2017-03-06 17:57 | EKG ---
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
--- NOTE | 2017-03-07 08:52 | RAD ---
Right shoulder 3 views. History: Right shoulder pain, fall 3 views were taken of the right shoulder. There is no fracture or dislocation or osseous abnormality. Impression: 1. Negative right shoulder.
--- NOTE | 2017-03-07 08:53 | RAD ---
AP chest. History: Right shoulder pain, cough x2 days, history of asthma, fall AP view was taken of the chest. Lungs are free of infiltrates. There is no pneumothorax or pleural effusion. Heart is normal in size. Impression: 1. No acute chest disease.
== END 2017-03-06 18:09 | disposition home or self-care (01) ==
LOC: ER 15:35
DX: S46.911A Strain of unspecified muscle, fascia and tendon at shoulder and upper arm level, right arm, initial encounter (principal); R07.89 Other chest pain; E11.43 Type 2 diabetes mellitus with diabetic autonomic (poly)neuropathy; K31.84 Gastroparesis; F41.9 Anxiety disorder, unspecified; J45.909 Unspecified asthma, uncomplicated; I34.1 Nonrheumatic mitral (valve) prolapse; Z96.661 Presence of right artificial ankle joint; Z88.1 Allergy status to other antibiotic agents; Z88.5 Allergy status to narcotic agent; Z88.8 Allergy status to other drugs, medicaments and biological substances; Z95.1 Presence of aortocoronary bypass graft; W01.198A Fall on same level from slipping, tripping and stumbling with subsequent striking against other object, initial encounter; Y93.01 Activity, walking, marching and hiking; Y92.89 Other specified places as the place of occurrence of the external cause; Y99.8 Other external cause status
CPT/HCPCS: 71010; 73030; 93005; 96372; 99284; J2270

== ENCOUNTER 2017-04-21 15:55 | Emergency (ER) | payer OTHER ==
[~2017-04-21] VITALS: Ht 157.5 cm; Wt 115.7 kg
[~2017-04-21 15:55] MED LIST changes: -BENZ200C39 PO; +BENZ200C47 PO; +DOCU-109 PO; -DOCU-27 PO; +SILV20CR14 TP; -SILV20CR4 TP; -TRAM-29 PO; +TRAM-48 PO
[2017-04-21 16:14] VITALS: BP 121/80
[2017-04-21] MEDS ORDERED: AMOX1TAB61 PO (16:15)
[2017-04-21] MEDS ORDERED: DIPHTH,PERTUSS(ACELL),TET TOX 0.5 ML DISP.SYRIN. VAX IM ONE (16:15)
--- NOTE | 2017-04-21 16:15 | PHYS DOC ---
Past Medical History Past Medical History: Anxiety, Asthma, Diabetes-Type II, Other Additional Past Medical Histor: gastroparesis, mvp Past Surgical History: Coronary Bypass Surgery, Tubal ligation, Other Additional Past Surgical Histo: R ANKLE ORIF Alcohol Use: None Drug Use: None Adult General Chief Complaint Chief Complaint: HAND PROBLEM HPI HPI Patient is a 37 year old female presents to the emergency department with a history of being bitten by a dog. Patient states she was walking her dog in the [place] when the dog came out of nowhere and attacked her dog. She states she was trying to get her dog away when the dog had bitten her in the left hand and a puncture wound noted in the left forearm. Patient states her last tetanus was greater then 7 years. Review of Systems Review of Systems Constitutional: Denies fever or chills [] Eyes: Denies change in visual acuity, redness, or eye pain [] HENT: Denies nasal congestion or sore throat [] Respiratory: Denies cough or shortness of breath [] Cardiovascular: No additional information not addressed in HPI [] GI: Denies abdominal pain, nausea, vomiting, bloody stools or diarrhea [] : Denies dysuria or hematuria [] Musculoskeletal: Denies back pain. Left hand pain Integument: Denies rash or skin lesions. Puncture wounds noted to the left hand and left forearm Neurologic: Denies headache, focal weakness or sensory changes [] Endocrine: Denies polyuria or polydipsia [] Current Medications Current Medications Current Medications Medications (Trade) Dose Ordered Sig/Diana Start Time Stop Time Status Last Admin Dose Admin Diphtheria/ Tetanus/Acell Pertussis (Boostrix) 0.5 ml ONCE ONCE 04/21/17 16:15 04/21/17 16:16 DC Allergies Allergies Allergies Coded Allergies Type Severity Reaction Last Updated Verified azithromycin Allergy Intermediate Hive, makes heart race. 03/03/17 Yes codeine Allergy Intermediate 03/03/17 Yes vancomycin Allergy Intermediate Hives 03/03/17 Yes metoclopramide Allergy Mild "SEVERE ANXIETY" 03/03/17 Yes Physical Exam Physical Exam Constitutional: Well developed, well nourished, no acute distress, non-toxic appearance. [] HENT: Normocephalic, atraumatic, bilateral external ears normal, oropharynx moist, no oral exudates, nose normal. [] Eyes: PERRLA, EOMI, conjunctiva normal, no discharge. [] Neck: Normal range of motion, no tenderness, supple, no stridor. [] Cardiovascular:Heart rate regular rhythm Lungs & Thorax: no respiratory distress noted Skin: Warm, dry, no erythema, no rash. Two puncture wounds noted, one to the left hand and one to the left forearm, bruising noted to the hand with swelling. No drainage or discharge noted. Back: No tenderness Extremities: No tenderness, no cyanosis, no clubbing, ROM intact, no edema. [] Neurologic: Alert and oriented X 3, normal motor function, normal sensory function, no focal deficits noted. [] Psychologic: Affect normal, judgement normal, mood normal. [] Current Patient Data Vital Signs Vital Signs Date Time Temp Pulse Resp B/P (MAP) Pulse Ox O2 Delivery O2 Flow Rate FiO2 04/21/17 16:14 98.6 95 20 121/80 (94) 98 Room Air 98.6 EKG EKG [] Radiology/Procedures Radiology/Procedures [] Course & Med Decision Making Course & Med Decision Making Pertinent Labs and Imaging studies reviewed. (See chart for details) X-ray was negative for any teeth, no fracture noted per Dr Daya Ho. Patients hand and forearm was cleaned with chlorhexidine and NS. Patient was offered rabies vaccination with patient refusing at this time. She was provided with risk and benefits. Patient was updated with her tetanus immunization, she was provided with naproxen for pain. [] Dragon Disclaimer Dragon Disclaimer This electronic medical record was generated, in whole or in part, using a voice recognition dictation system. Departure Departure Impression: Primary Impression: Dog bite of left hand Disposition: HOME, SELF-CARE Condition: STABLE Referrals: SHAYY DURANT MD (PCP) Patient Instructions: Animal Bite, [id number] Additional Instructions: Keep the area clean and dry Clean the site daily with soap and water and apply antibiotic ointment to the area Warm episom salt soaks 4 times a day Medication as prescribed, Take the antibiotics as prescribed, Complete the entire prescription Aleve for pain and discomfort Ice packs on 20 minutes off 20 minutes several times a day Elevation as much as possible Followup with your primary care provider in 3-5 days Return to the emergency department as needed for signs and symptoms that become worse. Scripts Amoxicillin/Potassium Clav (AUGMENTIN 875-125 TABLET) 1 Each Tablet 1 TAB PO BID, #20 TAB Prov: TRISTIAN KAUR APRN 04/21/17 TRISTIAN KAUR APRN Apr 21, 2017 16:15
--- NOTE | 2017-04-21 16:50 | RAD ---
Left hand, 3 views, 04/21/2017: History: Dog bite, injury, pain No fracture or dislocation is identified. There is mild soft tissue swelling over the dorsum of the hand in the metacarpal region. No radiopaque foreign body is evident. IMPRESSION: No acute bony abnormality is detected. Left forearm, 2 views, 04/21/2017: There is soft tissue swelling over the dorsum of the forearm. No underlying fracture or bony abnormality is detected. IMPRESSION: No acute bony abnormality is identified.
[2017-04-21] MEDS ORDERED: NAPROXEN 500 MG TABLET PO ONE (17:15)
== END 2017-04-21 17:18 | disposition home or self-care (01) ==
LOC: ER 15:55
DX: S61.452A Open bite of left hand, initial encounter (principal); S51.832A Puncture wound without foreign body of left forearm, initial encounter; F41.9 Anxiety disorder, unspecified; J45.909 Unspecified asthma, uncomplicated; E11.43 Type 2 diabetes mellitus with diabetic autonomic (poly)neuropathy; K31.84 Gastroparesis; Z95.1 Presence of aortocoronary bypass graft; Z88.1 Allergy status to other antibiotic agents; Z88.5 Allergy status to narcotic agent; Z88.8 Allergy status to other drugs, medicaments and biological substances; W54.0XXA Bitten by dog, initial encounter; Y93.K1 Activity, walking an animal; Y92.89 Other specified places as the place of occurrence of the external cause; Y99.8 Other external cause status
CPT/HCPCS: 73090; 73130; 90471; 90715; 99284-25

== ENCOUNTER → 2017-04-26 | Outpatient (CLI) | payer OTHER ==
[2017-04-21 16:14] VITALS: BP 121/80
[~2017-04-26] MED LIST changes: +AMOX1TAB61 PO
[2017-04-26 11:27] LABS: BASO % 0 % (0-3); EOS % 3 % (0-3); HEMOGLOBIN 14.1 g/dL (12.0-15.5); LYMPH % 20 % (24-48); MEAN CORPUSCULAR HEMOGLOBIN 27 pg (25-35); MEAN CORPUSCULAR HGB CONC 34 g/dL (31-37); MEAN CORPUSCULAR VOLUME 82 fL (79-100); MONO % 5 % (0-9); NEUT % 72 % (31-73); PLATELET COUNT 233 x10^3/uL (140-400); RED BLOOD COUNT 5.15 x10^6/uL (3.50-5.40); RED CELL DISTRIBUTION WIDTH 14.5 % (11.5-14.5); WHITE BLOOD COUNT 9.8 x10^3/uL (4.0-11.0)
[2017-04-26 11:51] LABS: FREE T4 1.04 ng/dL (0.76-1.46)
== END | disposition home or self-care (01) ==
LOC: LAB 11:03
PROVIDERS: ATTEND Obstetrics & Gynecology
DX: N92.0 Excessive and frequent menstruation with regular cycle (principal); N94.6 Dysmenorrhea, unspecified
CPT/HCPCS: 36415; 84146; 84439; 84443; 84481; 85027

== ENCOUNTER → 2017-05-02 | Outpatient (CLI) | payer OTHER ==
[2017-04-21 16:14] VITALS: BP 121/80
--- NOTE | 2017-05-02 18:31 | RAD ---
Pelvic ultrasound, 05/02/2017: History: Heavy vaginal bleeding, painful menses The uterus measures 10 x 6.1 x 4.2 cm. The central uterine echo complex measures 2 mm. Small Nabothian cysts are present. The uterus is otherwise unremarkable. The patient did not tolerate the transvaginal scan well due to pain. The ovaries could not be visualized transabdominally or transvaginally. No adnexal mass is seen. No free fluid is evident in the pelvis. IMPRESSION: Limited exam demonstrating no specific abnormality.
== END | disposition home or self-care (01) ==
LOC: US 14:09
PROVIDERS: ATTEND Obstetrics & Gynecology
DX: N92.0 Excessive and frequent menstruation with regular cycle (principal); N94.6 Dysmenorrhea, unspecified
CPT/HCPCS: 76830; 76856

== ENCOUNTER → 2017-05-02 | Outpatient (CLI) | payer OTHER ==
[2017-04-21 16:14] VITALS: BP 121/80
--- NOTE | 2017-05-03 11:09 | RAD ---
APPROVED REPORT Patient Location : OUT-PATIENT Indications Lower Extremity Pain : Bilateral Stasis Disease Lower Extremity Edema : Bilateral Varicose Veins Risk Factors Obesity Past History Diabetes Deep System Deep Venous Thrombosis present : No Deep Venous Reflux present : Bilateral Greater Saphenous Veins (GSV) Significant venous relux noted in the RIGHT GSV at the following levels : Superficial Femoral Junctio n Significant venous relux noted in the LEFT GSV at the following levels : Superficial Femoral Junction Lesser Saphenous Veins (LSV) Significant venous reflux is noted in the Bilateral LSV. Right Thigh extension noted : Yes Leftt Thigh extension noted : Yes Findings On grayscale images the bilateral common femoral veins appear compressible. The right great saphenous vein measures approximately 1 cm and has a reflux time a 1.3 seconds. The r ight lesser saphenous vein measures approximately 5 mm and does not show any evidence of reflux. Ther e are multiple perforators noted on the right thigh and calf at approximately 28, 26, 20, 12 cm up an d 13, 12, 12, 12 cm back in the calf as well as 56, 50 cm up and, 15 cm back respectively. The left great saphenous vein measures 1 cm and has a reflux time of 1.2 seconds. The left lesser sap henous vein measures 3 mm and does not reflux. There are multiple calf and thigh perforators as noted : 28, 11 cm up and 14, 9 cm back in the calf. There is also thigh perforators at 60 cm up and 28 7 m back as well as 50 cm up and 26 centimeters back. Critical Notification Critical Value: No <Conclusion> 1. Positive for reflux in the bilateral greater saphenous veins with multiple calf and thigh perforat ors noted as described above.
== END | disposition home or self-care (01) ==
LOC: US 08:00
PROVIDERS: ATTEND Internal Medicine Cardiovascular Disease
DX: I87.2 Venous insufficiency (chronic) (peripheral) (principal); R60.0 Localized edema; I83.93 Asymptomatic varicose veins of bilateral lower extremities
CPT/HCPCS: 93970